=== PATIENT | male | born 1955 | race Caucasian/White ===

== ENCOUNTER → 2024-07-14 06:45 | Outpatient (REF) | payer MEDICARE, OTHER, SELFPAY ==
[2024-07-14] MEDS: LEXISCAN 0.4 MG IV (09:17)
== END ==
LOC: RCS 06:45
PROVIDERS: ATTENDING PHYSICIAN Internal Medicine Cardiovascular Disease; FAMILY PHYSICIAN Family Medicine
DX: R94.31 Abnormal electrocardiogram [ECG] [EKG] (principal); I10 Essential (primary) hypertension
CPT/HCPCS: 78452; 93017; A9500; J2785